=== PATIENT | male | born 1945 | race Caucasian/White ===

== ENCOUNTER 2016-09-14 07:07 | Day surgery (SDC) | payer MEDICARE ==
[2016-09-14] MEDS ORDERED: Propofol 200 MG/20 ML SDV ONE (07:17)
[2016-09-14] MEDS ORDERED: Midazolam 1 MG/ML 2 ML SDV ONE (07:17)
[2016-09-14] MEDS ORDERED: fentaNYL 100 MCG/2 ML SDV ONE (07:17)
[2016-09-14] MEDS ORDERED: Sodium Chloride 0.9% 1,000 ML IV SCH (07:30)
[2016-09-14 09:42] VITALS: BP 133/86
--- NOTE | 2016-09-17 07:31 | OR ---
DATE OF PROCEDURE: 09/14/2016 PROCEDURE: Colonoscopy, sigmoid colon polyp, approximately 5 mm, completely removed using cold biopsy forceps. COMPLICATIONS: None. MEDICAL ASSISTANT SECRETARY: None. PREOPERATIVE DIAGNOSIS: Screening colonoscopy. POSTOPERATIVE DIAGNOSIS: Screening colonoscopy. RISKS: The risks, benefits, alternatives, and limitations, including, but not limited to infection, bleeding, and perforation were explained to the patient. They wished to proceed. PROCEDURE IN DETAIL: The patient was placed in left lateral decubitus position. Digital rectal exam was performed without abnormality. The scope was introduced and advanced atraumatically to the ileocecal valve. The scope was brought back to the ascending, transverse, descending colon, and retroflexed. The sigmoid colon polyp was identified and completely removed. No other abnormalities noted. The patient tolerated the procedure well. Of note, the patient had diverticulosis with only approximately 3 to 4 pockets. Uche Donis MD /[id number]
== END 2016-09-14 10:15 | disposition home or self-care (01) ==
LOC: JP.SDS 07:07
PROVIDERS: ATTEND Surgery
DX: Z12.11 Encounter for screening for malignant neoplasm of colon (principal); K63.5 Polyp of colon; K57.30 Diverticulosis of large intestine without perforation or abscess without bleeding; N18.3 Chronic kidney disease, stage 3 (moderate); Z88.1 Allergy status to other antibiotic agents; Z88.2 Allergy status to sulfonamides; Z88.8 Allergy status to other drugs, medicaments and biological substances
CPT/HCPCS: 45380; J2250; J2704; J3010; J7040; 88305

== ENCOUNTER 2018-08-27 10:40 | Emergency (ER) | payer MEDICARE ==
[2018-08-27] MEDS ORDERED: Sodium Chloride 0.9% 10 ML Syringe FLUSH PRN (11:09)
--- NOTE | 2018-08-27 11:14 | EDM.PDOC ---
ED HPI GENERAL MEDICAL PROBLEM - General Chief Complaint: Back Pain or Injury Stated Complaint: [facility]IA [facility] Time Seen by Provider: 08/27/18 11:02 Source of Information: Reports: Patient, Family, RN Notes Reviewed History Limitations: Reports: No Limitations - History of Present Illness INITIAL COMMENTS - FREE TEXT/NARRATIVE: 73-year-old gentleman presents emergency department today following trauma at home, he slipped on the ice going out of his house fell backwards all of his weight landed on the right portion of his lower rib cage in the back. He did arrive by EMS services did receive 1 mg Dilaudid which did provide some relief for him. He does complain of pain with a deep breath, denies any loss of consciousness or head injury Treatments COST CONTROL ANALYST: Reports: Other (see below) Other Treatments COST CONTROL ANALYST: dilaudid 1 mg - Related Data Allergies Allergy/AdvReac Type Severity Reaction Status Date / Time ciprofloxacin [From Cipro] Allergy Dizziness Verified 08/27/18 10:50 Sulfa (Sulfonamide Allergy Cannot Verified 08/27/18 10:50 Antibiotics) Remember sulfamethoxazole Allergy Other Verified 08/27/18 10:50 [From Bactrim] trimethoprim [From Bactrim] Allergy Other Verified 08/27/18 10:50 acetaminophen [From Lortab] AdvReac Nausea Verified 08/27/18 10:50 cefadroxil [From Duricef] AdvReac Diarrhea Verified 08/27/18 10:50 hydrocodone [From Lortab] AdvReac Nausea Verified 08/27/18 10:50 lactose AdvReac Indigestion Verified 08/27/18 10:50 Home Meds: Home Meds Calcium Carbonate [Calcium] 600 mg PO DAILY 04/19/16 [History] Past Medical History HEENT History: Reports: Impaired Vision Respiratory History: Reports: Pneumothorax Gastrointestinal History: Reports: Other (See Below) Other Gastrointestinal History: small bowel obstruction Genitourinary History: Reports: BPH, Chronic Renal Insuffiency, Retention, Urinary, Other (See Below) Other Genitourinary History: self cath - retention Musculoskeletal History: Reports: Arthritis, Back Pain, Chronic Endocrine/Metabolic History: Reports: Other (See Below) Other Endocrine/Metabolic History: growth on thyroid Oncologic (Cancer) History: Reports: Malignant Melanoma Other Oncologic History: melanoma on neck removed Dermatologic History: Reports: Melanoma - Infectious Disease History Infectious Disease History: Reports: Chicken Pox, Influenza, Measles - Past Surgical History Endocrine Surgical History: Reports: Thyroid Biopsy Dermatological Surgical History: Reports: Skin Biopsy Social & Family History - Family History Family Medical History: Noncontributory Cardiac: Reports: Aneurysm Oncologic: Reports: Breast, Liver - Tobacco Use Smoking Status *Q: Never Smoker - Caffeine Use Caffeine Use: Reports: Coffee - Recreational Drug Use Recreational Drug Use: No - Living Situation & Occupation Living situation: Reports: , with Spouse Review of Systems - Review of Systems Review Of Systems: See Below Constitutional: Reports: No Symptoms Respiratory: Reports: Shortness of Breath Cardiovascular: Reports: Chest Pain Neurological: Reports: No Symptoms ED EXAM, GENERAL - Physical Exam Exam: See Below Exam Limited By: No Limitations General Appearance: Alert, Mild Distress Respiratory/Chest: No Respiratory Distress, Lungs Clear, Normal Breath Sounds, No Accessory Muscle Use, Other (Tender to palpation right CVA area) Cardiovascular: Regular Rate, Rhythm, No Murmur Neurological: Alert, Oriented, Normal Cognition Course - Vital Signs Last Recorded V/S: Last Vital Signs Temp 96.0 F 08/27/18 10:47 Pulse 65 08/27/18 10:47 Resp 18 08/27/18 10:47 BP 125/77 08/27/18 10:47 Pulse Ox 98 08/27/18 10:47 - Orders/Labs/Meds Orders: Active Orders 24 hr Category Date Time Status Peripheral IV Care [RC] . DIRECTED Care 08/27/18 11:10 Active Iopamidol [Isovue-300 (61%)] Med 08/27/18 11:15 Active 100 ml IV . DIRECTED Sodium Chloride 0.9% [Normal Saline] 1,000 ml Med 08/27/18 11:15 Active IV ASDIRECTED Sodium Chloride 0.9% [Normal Saline] 100 ml Med 08/27/18 11:15 Active IV ASDIRECTED Sodium Chloride 0.9% [Saline Flush] Med 08/27/18 11:09 Active 10 ml FLUSH ASDIRECTED PRN Peripheral IV Insertion Adult [OM.PC] Urgent Oth 08/27/18 11:09 Ordered Medication Orders Sodium Chloride (Normal Saline) 1,000 mls @ 500 mls/hr IV ASDIRECTED RUBIA Last Admin: 08/27/18 11:28 Dose: 500 mls/hr Sodium Chloride (Normal Saline) 100 mls @ 3 mls/sec IV ASDIRECTED RUBIA Last Admin: 08/27/18 11:56 Dose: 3 mls/sec Iopamidol (Isovue-300 (61%)) 100 ml IV . DIRECTED RUBIA Last Admin: 08/27/18 11:57 Dose: 100 ml Sodium Chloride (Saline Flush) 10 ml FLUSH ASDIRECTED PRN PRN Reason: Keep Vein Open Last Admin: 08/27/18 12:08 Dose: 10 ml Labs: Laboratory Tests 08/27/18 08/27/18 Range/Units 11:25 11:25 WBC 9.8 (4.5-11.0) K/uL RBC 4.76 (4.30-5.90) M/uL Hgb 14.7 D (12.0-15.0) g/dL Hct 43.0 (40.0-54.0) % MCV 90 (80-98) fL MCH 31 (27-31) pg MCHC 34 (32-36) % Plt Count 349 (150-400) K/uL Neut % (Auto) 70 H (36-66) % Lymph % (Auto) 20 L (24-44) % [place] % (Auto) 10 H (2-6) % Eos % (Auto) 0 L (2-4) % Baso % (Auto) 0 (0-1) % Sodium 136 L (140-148) mmol/L Potassium 4.4 (3.6-5.2) mmol/L Chloride 102 (100-108) mmol/L Carbon Dioxide 26 (21-32) mmol/L Anion Gap 12.4 (5.0-14.0) mmol/L BUN 29 H (7-18) mg/dL Creatinine 1.6 H (0.8-1.3) mg/dL Est Cr Clr Drug Dosing 40.16 mL/min Estimated GFR (MDRD) 43 L (>60) Glucose 112 H (74-106) mg/dL Calcium 9.3 (8.5-10.1) mg/dL Meds: Medications Generic Name Dose Route Start Last Admin Trade Name Freq PRN Reason Stop Dose Admin Sodium Chloride 1,000 mls @ 500 mls/hr 08/27/18 11:15 08/27/18 11:28 Normal Saline IV 500 mls/hr ASDIRECTED RUBIA Administration Sodium Chloride 100 mls @ 3 mls/sec 08/27/18 11:15 08/27/18 11:56 Normal Saline IV 3 mls/sec ASDIRECTED RUBIA Administration Iopamidol 100 ml 08/27/18 11:15 08/27/18 11:57 Isovue-300 (61%) IV 100 ml . DIRECTED RUBIA Administration Sodium Chloride 10 ml 08/27/18 11:09 08/27/18 12:08 Saline Flush FLUSH 10 ml ASDIRECTED PRN Administration Keep Vein Open Departure - Departure Time of Disposition: 12:46 Disposition: Home, Self-Care 01 Condition: Fair Clinical Impression: Rib contusion Qualifiers: Encounter type: initial encounter Laterality: right Qualified Code(s): S20.211A - Contusion of right front wall of thorax, initial encounter - Discharge Information Referrals: PCP,None [Primary Care Provider] - Forms: ED Department Discharge Additional Instructions: Use Tylenol or Motrin as needed for pain control Please followup with your primary care provider in 3-5 days if not better, please call return to the emergency department with worsening of symptoms. - My Orders Last 24 Hours: My Active Orders 08/27/18 11:09 Sodium Chloride 0.9% [Saline Flush] 10 ml FLUSH ASDIRECTED PRN Peripheral IV Insertion Adult [OM.PC] Urgent 08/27/18 11:10 Peripheral IV Care [RC] . DIRECTED 08/27/18 11:15 Iopamidol [Isovue-300 (61%)] 100 ml IV . DIRECTED Sodium Chloride 0.9% [Normal Saline] 1,000 ml IV ASDIRECTED Sodium Chloride 0.9% [Normal Saline] 100 ml IV ASDIRECTED - Assessment/Plan Last 24 Hours: My Active Orders 08/27/18 11:09 Sodium Chloride 0.9% [Saline Flush] 10 ml FLUSH ASDIRECTED PRN Peripheral IV Insertion Adult [OM.PC] Urgent 08/27/18 11:10 Peripheral IV Care [RC] . DIRECTED 08/27/18 11:15 Iopamidol [Isovue-300 (61%)] 100 ml IV . DIRECTED Sodium Chloride 0.9% [Normal Saline] 1,000 ml IV ASDIRECTED Sodium Chloride 0.9% [Normal Saline] 100 ml IV ASDIRECTED Plan: Assessment Acuity = acute Site and laterality = rib contusion Etiology = secondary to fall Manifestations = none Location of injury = Home Lab values = CBC unremarkable creatinine elevated 1.6 consistent chronic renal failure stage G IIIB, CT scan of the chest shows no acute traumatic process Plan Did review lab work CT scan results with him he will follow-up with his primary care as needed Tylenol Motrin as needed for pain This note was dictated using [employer] voice recognition software please call with any questions on syntax or grammar.
[2018-08-27] MEDS ORDERED: Iopamidol 612 MG/ML 100 ML Bottle IV SCH (11:15)
[2018-08-27] MEDS ORDERED: Sodium Chloride 0.9% 1,000 ML IV SCH (11:15)
[2018-08-27] MEDS ORDERED: Sodium Chloride 0.9% 100 ML IV SCH (11:15)
[2018-08-27 11:28] VITALS: BP 125/77
--- NOTE | 2018-08-27 12:35 | CRLCT ---
INDICATION: Trauma with right CVA pain TECHNIQUE: CT chest was acquired with IV contrast. 100 cc Isovue-300 COMPARISON: None FINDINGS: Cardiovascular structures: Heart size is normal. Thoracic aorta and main pulmonary artery are normal in caliber. Mediastinum and erin: No mass or adenopathy. Lungs: Clear. Pleura and pericardium: No effusions. Chest wall and axilla: No mass or adenopathy. Bones: No significant findings. Upper abdomen: Unremarkable. IMPRESSION: Atraumatic appearance of the chest. Dictated by Sebastien Louis MD @ 08/27/2018 12:33:45 PM Please note that all CT scans at this facility use dose modulation, iterative reconstruction, and/or weight-based dosing when appropriate to reduce radiation dose to as low as reasonably achievable. Dictated by: Sebastien Louis MD @ 08/27/2018 12:33:59 (Electronically Signed)
== END 2018-08-27 13:36 | disposition home or self-care (01) ==
LOC: JP.ED 10:40
DX: S20.211A Contusion of right front wall of thorax, initial encounter (principal); N18.9 Chronic kidney disease, unspecified; W00.0XXA Fall on same level due to ice and snow, initial encounter; Z79.899 Other long term (current) drug therapy; Y92.009 Unspecified place in unspecified non-institutional (private) residence as the place of occurrence of the external cause; Z88.2 Allergy status to sulfonamides; Z88.5 Allergy status to narcotic agent
CPT/HCPCS: 36415; 71260; 80048; 85025; 96360; 96361; 99284; J7030; Q9967

== ENCOUNTER 2020-12-27 06:27 | Day surgery (SDC) | payer MEDICARE ==
[2020-12-27] MEDS ORDERED: Sodium Chloride 0.9% 1,000 ML IV SCH (07:00)
[2020-12-27] MEDS ORDERED: fentaNYL 100 MCG/2 ML SDV ONE (07:07)
[2020-12-27] MEDS ORDERED: Propofol 200 MG/20 ML SDV ONE (07:07)
[2020-12-27 08:46] VITALS: BP 134/71; PULSE 56
--- NOTE | 2020-12-27 09:34 | OR ---
DATE OF PROCEDURE: 12/27/2020 SURGEON: Uche Donis MD PROCEDURE: Esophagogastroduodenoscopy. FINDINGS: 1. Mild inflammation at GE junction concerning for reflux disease (biopsied in all 4 quadrants using cold biopsy forceps). 2. No etiology for black tarry stools. COMPLICATIONS: None. LACQUERER: None. ANESTHESIA: MAC. PREOPERATIVE DIAGNOSES: Anemia, black tarry stools. POSTOPERATIVE DIAGNOSES: Anemia, black tarry stools. RISKS: Risks, benefits, alternatives, and limitations including but not limited to infection, bleeding, perforation, false positives and false negatives were explained to the patient and he wished to proceed. PROCEDURE IN DETAIL: The patient was placed in left lateral decubitus position. The EGD scope was introduced and advanced atraumatically to the second part of the duodenum. No evidence of duodenitis or ulceration was noted. There was no old or new blood. Within the stomach, there was no ulceration or gastritis. The patient had mild inflammation at the GE junction concerning for reflux disease. This was biopsied in all 4 quadrants using cold biopsy forceps. The air was removed from the stomach. The esophagus was inspected without abnormality. The patient tolerated the procedure well. Uche Donis MD /[id number]
== END 2020-12-27 08:59 | disposition home or self-care (01) ==
LOC: JP.SDS 06:27
PROVIDERS: ATTEND Surgery
DX: R10.13 Epigastric pain (principal); K22.8 Other specified diseases of esophagus; D64.9 Anemia, unspecified; K21.9 Gastro-esophageal reflux disease without esophagitis; K92.1 Melena; E78.00 Pure hypercholesterolemia, unspecified; N18.9 Chronic kidney disease, unspecified
CPT/HCPCS: J2704; J3010; J7030

== ENCOUNTER 2022-04-04 09:01 | Emergency (ER) | payer MEDICARE ==
[2022-04-04] MEDS ORDERED: Sodium Chloride 0.9% 1,000 ML IV SCH (10:00)
[2022-04-04] MEDS ORDERED: LORazepam 2 MG/ML SDV IVPUSH ONE (11:22)
[2022-04-04] MEDS ORDERED: Alum Hydrox/Mag Hydrox/Simeth 15 ML, Lidocaine 2% 15 ML PO ONE ×2 (12:41)
[2022-04-04 14:17] VITALS: BP 134/67; PULSE 75
== END 2022-04-04 15:13 | disposition home or self-care (01) ==
LOC: JP.ED 09:01
DX: R11.2 Nausea with vomiting, unspecified (principal); T40.425A Adverse effect of tramadol, initial encounter; Z88.1 Allergy status to other antibiotic agents; Z88.5 Allergy status to narcotic agent; Z88.6 Allergy status to analgesic agent; Z88.2 Allergy status to sulfonamides; Z79.899 Other long term (current) drug therapy
CPT/HCPCS: 36415; 80048; 84484; 85025; 96361; 96374; 99284; A9270; J2060; J7030